=== PATIENT | female | born 1965 | race Caucasian/White ===

== ENCOUNTER 2018-07-23 13:45 | Day surgery (SDC) | payer OTHER ==
[2018-07-17 10:29] VITALS: BMI 24.1
--- NOTE | 2018-07-18 18:33 | P.GSHP ---
History of Present Illness H&P Date: 07/15/18 Chief Complaint: Right hydronephrosis The patient is a 52-year-old female who was diagnosed with stage IV chronic kidney disease earlier this summer. Her creatinine was 2.8 in 04/2018. 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 Renal ultrasound on 05/17/2018 showed moderate right hydronephrosis and a somewhat atrophic left kidney. Patient was seen by me on 07/11 and I showed her the renal ultrasound. The source of the hydronephrosis is unclear but could be related to a chronic ureteropelvic junction obstruction. If the kidney is obstructed then relief of the obstruction may improve or stabilize her renal function. Cystoscopy with right retrograde is planned with the intent of placement of a double-J catheter if an obstruction is confirmed. The patient has no history of urolithiasis or gross hematuria. She usually voids every 4 hours during the day and has no nocturia. There is no history of recurrent urinary tract infections. - Constitutional Constitutional: Denies chronic pain, Denies fever, Denies weight loss - Cardiovascular Cardiovascular: Reports shortness of breath (Related to anxiety attack), Denies chest pain, Denies edema, Denies palpitations - Respiratory Respiratory: Denies cough, Denies wheezing - Gastrointestinal Gastrointestinal: Denies abdominal pain - Genitourinary (Female) Genitourinary: Reports as per HPI Past Medical History Past Medical History: Renal Disease (Stage 4) Additional Past Medical History / Comment(s): Anxiety Past Surgical History: Section (x 2; D&C x2) Past Psychological History: Anxiety Smoking Status: Never smoker - Past Family History Father Additional Family Medical History / Comment(s): Parkinson's Disease-Father Sister(s) Family Medical History: Cancer Additional Family Medical History / Comment(s): LUNG Medications and Allergies Home Medications Medication Instructions Recorded Confirmed Type Acetaminophen Tab [Tylenol Tab] 1,000 mg PO Q6HR PRN 07/17/18 07/17/18 History clonazePAM [KlonoPIN] 0.5 mg PO HS 07/17/18 07/17/18 History Allergies Allergy/AdvReac Type Severity Reaction Status Date / Time Sulfa (Sulfonamide AdvReac Abdominal Verified 07/17/18 10:24 Antibiotics) Pain Surgical - Exam - General well developed, well nourished, no distress - ENT no hearing loss - Neck no masses, no lymphadectomy - Respiratory normal respiratory effort, clear to auscultation - Cardiovascular Rhythm: regular Abnormal Heart Sounds: no systolic murmur, no diastolic murmur - Abdomen Abdomen: soft, non tender, no organomegaly Assessment and Plan Assessment: The patient will undergo cystoscopy with right retrograde pyeloureterogram under general anesthesia. If an obstruction is present an attempt will be made to place a double-J catheter for temporary palliation. The patient is aware of the operative risks which include anesthesia, bleeding and infection. (1) Hydronephrosis, right Status: Acute Code(s): N13.30 - UNSPECIFIED HYDRONEPHROSIS SNOMED Code(s): 76184491
[~2018-07-23 13:45] MED LIST: DEXAMETHASONE SOD PHOSPHATE 10 MG/ML 1 ML VIAL IV ONE; HYDROmorphone 0.5 MG/0.5 ML SYRINGE IVP PRN; LACTATED RINGERS 1,000 ML IV SCH; LIDOCAINE 1% 20 ML VIAL (10MG/ML) FOR IV START INTRADERMA PRN; ONDANSETRON 4 MG/2 ML VIAL IVP ONE; SCOPOLAMINE 1.5MG/72HR PATCH TRANSDERM ONE; ceFAZolin 1,000 MG in DEXTROSE/WATER 1 50ML.BAG IV ONE
[2018-07-23] MEDS ORDERED: MIDAZOLAM 2 MG/2 ML VIAL IVP ONE ×2 (14:09→15:50)
[2018-07-23] MEDS ORDERED: LIDOCAINE 1% INJ 10MG/ML (20 ML MDV) ONE (16:11)
[2018-07-23] MEDS ORDERED: MIDAZOLAM 2 MG/2 ML VIAL ONE (16:11)
[2018-07-23] MEDS ORDERED: SUCCINYLCHOLINE CHLORIDE 100 MG/5 ML SYR IV ONE (16:11)
[2018-07-23] MEDS ORDERED: PROPOFOL 10 MG/ML 20 ML VIAL IV ONE (16:11)
[2018-07-23] MEDS ORDERED: fentaNYL (PF) 50 MCG/ML 2 ML AMP ONE (16:11)
[2018-07-23] MEDS ORDERED: ePHEDrine SULFATE/0.9% NACL/PF 50 MG/5 ML SYRINGE IV ONE (16:11)
[2018-07-23] MEDS ORDERED: IOHEXOL 350 MG/ML 50ML BOTTLE IRRIGATION ONE (16:37)
[2018-07-23] MEDS: LACTATED RINGERS 1,000 ML IV ONE ×2 (16:38→17:55)
[2018-07-23] MEDS ORDERED: LACTATED RINGERS 1,000 ML IV ONE (16:38)
[2018-07-23 18:03] VITALS: RESP 16; TEMP 97.6
--- NOTE | 2018-07-23 18:06 | P.OP ---
Date of Procedure: 07/23/18 Preoperative Diagnosis: Right hydronephrosis Postoperative Diagnosis: Right hydronephrosis secondary to mid right ureteral calculus Procedure(s) Performed: Cystoscopy with right retrograde ureterogram, right ureteroscopy with lithotripsy and placement of right double-J catheter Anesthesia: ALVERTO Surgeon: Ceasar Avery Estimated Blood Loss (ml): 0 Pathology: none sent Condition: stable Disposition: PACU Indications for Procedure: The patient is a 52-year-old female who was recently discovered to have an elevated creatinine. Renal ultrasound shows right hydronephrosis. Patient has no history of flank pain or hematuria. Cystoscopy with right retrograde is planned for further evaluation. Description of Procedure: The patient was taken to the operating suite suite where adequate general anesthesia via orotracheal intubation was instituted. She was placed in the dorsal lithotomy position with her legs suspended from padded Stanton stirrups. Pneumatic compression stockings were applied to the lower legs. The genitalia was prepped with Betadine solution and draped in a sterile fashion. The external genitalia and urethral meatus were unremarkable. The 17-Estonian cystoscope sheath with 30 lens was passed through the urethra and into the bladder. The bladder showed evidence of cystitis cystica. There was no evidence of tumor foreign body or diverticulum. Both ureteral orifice ease were of normal location and configuration and effluxed clear urine. A right retrograde ureterogram was performed using an 8-Estonian cone-tipped catheter. The distal ureter was unremarkable. In the mid ureter was a filling defect which appeared to be consistent with a ureteral calculus. A 0.035 Glidewire was advanced through the right ureteral orifice and eventually beyond the calculus and into the region of the renal pelvis. The cystoscope was withdrawn leaving the Glidewire in place. The flexible ureteroscope was advanced over the Glidewire and into the distal ureter. The distal ureter and mid ureter was unremarkable up to the region of the filling defect which was confirmed to be a calculus. There appeared to be relatively severe edema adjacent to the calculus. The ureteroscope was withdrawn leaving the Glidewire in place. A 13- Estonian ureteral reentry sheath with 11-Estonian obturator was advanced over the Glidewire and positioned so that the proximal end of the reentry sheath was approximately 3 cm distal to the calculus. Ureteroscopy was performed using the flexible ureteroscope through the access sheath. It was difficult to achieve good visualization of the calculus but at times the calculus was well visualized and was part shortly broken down using the holmium laser at a setting of 600 mJ and 6 cps and the 200 laser fiber. Unfortunately due to the edema around the ureter became increasingly difficult to safely the laser on the stone. A 0.038 straight glide wire was advanced adjacent to the calculus in an attempt to straighten the ureter but even after doing this it was suboptimal to safely visualize the calculus to continue ureteroscopy. The ureteroscope and reentry sheath were withdrawn leaving the 0.[address] The 19-Estonian cystoscope sheath with 30 lens was backloaded over the Glidewire and reintroduced in the bladder. A 6-Estonian by 22 cm double-J catheter was advanced over the Glidewire and positioned fluoroscopically so that the proximal end coiled in the region of the renal pelvis and the distal end coiled in the bladder. The bladder was drained and the cystoscope was withdrawn. The patient tolerated the procedure well and left the operating suite in satisfactory condition. There was no blood loss. Repeat ureteroscopy will be set up in 2-3 weeks at which time the edema surrounding the ureteral calculus will most likely have subsided.
[2018-07-23 18:55] VITALS: BP 156/80; PULSE 116
--- NOTE | 2018-07-24 10:21 | FL ---
Fluoroscopy HISTORY: Ureteral calculi 28 seconds fluoroscopy time supplied to the referring clinician. 4 intraoperative C-arm images docum ent the procedure. See dictated report from urology.
== END 2018-07-23 19:13 | disposition home or self-care (01) ==
LOC: OR 13:45
PROVIDERS: ATTEND Urology
DX: N13.2 Hydronephrosis with renal and ureteral calculous obstruction (principal); N18.4 Chronic kidney disease, stage 4 (severe); F41.9 Anxiety disorder, unspecified; K21.9 Gastro-esophageal reflux disease without esophagitis; Z79.899 Other long term (current) drug therapy; Z88.2 Allergy status to sulfonamides
CPT/HCPCS: 74420; 52356; C1758; C1769 ×2; C2625; J2250; J1100; J2405; J2001; J3010; J0690; J0330; J2704; Q9967

== ENCOUNTER 2018-08-10 11:04 | Day surgery (SDC) | payer OTHER ==
[2018-08-08 11:48] VITALS: BMI 23.8
--- NOTE | 2018-08-09 13:08 | P.GSHP ---
History of Present Illness H&P Date: 08/09/18 Chief Complaint: Right ureteral calculus The patient underwent right retrograde on 07/23/2018 for evaluation of right hydronephrosis and was found to have and obstructive right ureteral calculus. There was too much edema adjacent to the calculus to safely perform holmium laser lithotripsy and so a JJ catheter was placed to allow the edema to resolve. The patient is admitted for repeat ureteroscopy with lithotripsy. The remainder of her history and physical is unchanged from my history and physical dated 07/15/2018. Past Medical History Past Medical History: Renal Disease Additional Past Medical History / Comment(s): STAGE 4 LEFT KIDNEY DISEASE, KIDNEY STONES History of Any Multi-Drug Resistant Organisms: None Reported Past Surgical History: Section Additional Past Surgical History / Comment(s): C-SEC X 2, LITHOTRIPSY AND PLACEMENT OF RIGHT DOUBLE J CATHETER Past Anesthesia/Blood Transfusion Reactions: No Reported Reaction Smoking Status: Never smoker - Past Family History Father Additional Family Medical History / Comment(s): Parkinson's Disease-Father Sister(s) Family Medical History: Cancer Additional Family Medical History / Comment(s): LUNG Medications and Allergies Home Medications Medication Instructions Recorded Confirmed Type Acetaminophen Tab [Tylenol Tab] 1,000 mg PO Q6HR PRN 07/17/18 08/08/18 History clonazePAM [KlonoPIN] 0.5 mg PO HS 07/17/18 08/08/18 History PARoxetine [Paxil] 20 mg PO DAILY 08/08/18 08/08/18 History Allergies Allergy/AdvReac Type Severity Reaction Status Date / Time Sulfa (Sulfonamide AdvReac Abdominal Verified 08/08/18 11:26 Antibiotics) Pain Assessment and Plan (1) Hydronephrosis with ureteral calculus Narrative/Plan: The patient will undergo right ureteroscopy with lithotripsy under general anesthesia. She is aware of the operative risks which include ureteral damage and persistent hydronephrosis. Status: Acute Code(s): N13.2 - HYDRONEPHROSIS WITH RENAL AND URETERAL CALCULOUS OBSTRUCTION SNOMED Code(s): 021395700
[~2018-08-10 11:04] MED LIST changes: -HYDROmorphone 0.5 MG/0.5 ML SYRINGE IVP PRN; +HYDROmorphone 1 MG/ML 1 ML SYRINGE IVP PRN; -LIDOCAINE 1% 20 ML VIAL (10MG/ML) FOR IV START INTRADERMA PRN; +MIDAZOLAM 2 MG/2 ML VIAL IV PRN; -ceFAZolin 1,000 MG in DEXTROSE/WATER 1 50ML.BAG IV ONE; +ceFAZolin 1,000 MG in EMPTY BAG 1 BAG IVPB ONE
[2018-08-10 11:36] VITALS: RESP 16
[2018-08-10] MEDS ORDERED: LIDOCAINE 1% 20 ML VIAL (10MG/ML) FOR IV START INTRADERMA ONE (11:56)
[2018-08-10] MEDS ORDERED: SUCCINYLCHOLINE CHLORIDE 100 MG/5 ML SYR IV ONE (12:54)
[2018-08-10] MEDS ORDERED: ePHEDrine SULFATE/0.9% NACL/PF 50 MG/5 ML SYRINGE IV ONE (12:54)
[2018-08-10] MEDS ORDERED: MIDAZOLAM 2 MG/2 ML VIAL ONE (12:54)
[2018-08-10] MEDS ORDERED: LIDOCAINE 1% INJ 10MG/ML (20 ML MDV) ONE (12:54)
[2018-08-10] MEDS ORDERED: fentaNYL (PF) 50 MCG/ML 2 ML AMP ONE (12:54)
[2018-08-10] MEDS ORDERED: PROPOFOL 10 MG/ML 20 ML VIAL IV ONE (12:54)
[2018-08-10] MEDS ORDERED: LACTATED RINGERS 1,000 ML IV ONE (14:19)
[2018-08-10 14:33] VITALS: TEMP 96.8
--- NOTE | 2018-08-10 14:39 | FL ---
EXAMINATION TYPE: FL guidance operating room DATE OF EXAM: 08/10/2018 CLINICAL HISTORY: Ureteral stent placement and stone removal. Fluoroscopy recommendation. TECHNIQUE: Fluoroscopy. COMPARISON: None. FINDINGS/IMPRESSION: Fluoroscopic guidance was provided during procedure performed by Dr. Avery. A total of 5 seconds of fluoroscopic time was utilized during the procedure and 1 spot images was acqui red during ureteral stone removal and stent placement.
--- NOTE | 2018-08-10 14:39 | P.OP ---
Date of Procedure: 08/10/18 Preoperative Diagnosis: Right hydronephrosis secondary to right ureteral calculus Postoperative Diagnosis: Right hydronephrosis secondary to right ureteral calculus Procedure(s) Performed: Cystoscopy with right ureteroscopy, lithotripsy and placement of right double-J catheter Anesthesia: ALVERTO Surgeon: Ceasar Avery Estimated Blood Loss (ml): 0 Pathology: other (right ureteral calculus fragments) Condition: stable Disposition: PACU Indications for Procedure: The patient is a 52-year-old female who was recently noted to have an elevated creatinine. Renal ultrasound identified right hydronephrosis. Cystoscopy with right retrograde a proximally 2 weeks ago showed evidence of a mid right ureteral calculus which was the cause of the hydronephrosis. Ureteroscopy with lithotripsy was attempted but could not be completed due to edema surrounding the calculus. A double-J catheter was left. Repeat ureteroscopy with lithotripsy is planned. Description of Procedure: The patient was taken the operating suite where adequate general anesthesia via orotracheal intubation was instituted. The patient was placed in the dorsal lithotomy position with her legs suspended from padded Stanton stirrups. Sequential pneumatic compression stockings were applied to the lower legs. The perineum was prepped with Betadine solution and draped in a sterile fashion. The external genitalia and urethral meatus were normal. The 22-Fijian cystoscope sheath with obturator was passed through the urethra and into the bladder. The bladder was examined. Protruding from the right ureteral orifice was the distal coiled end of a double-J catheter. The double-J catheter was grasped with biopsy forceps and pulled to just outside the urethral meatus. A 0.035 straight Glidewire was passed through the double-J catheter up to the region of the right renal pelvis and the double-J catheter was removed. Right ureteroscopy was then performed using the semirigid rigid ureteroscope. The distal and mid ureter was unremarkable. A calculus was identified in the region between the mid and proximal ureter. A moderate amount of edema remained. The calculus was broken down into multiple smaller fragments using the 370 fiber and the holmium laser at a setting of 600 mJ and 6 cps. The larger calculus fragments were then removed from the ureter using a 1.9-Fijian nitinol stone basket. The semirigid ureteroscope was removed. The flexible ureteroscope was then advanced over the Glidewire and into the mid ureter. The flexible ureteroscope was then advanced up into the proximal ureter and renal pelvis. The calyces of the kidney were examined. A small calculus fragment was identified in a lower pole calyx and trapped using the stone basket. The ureter was examined as the ureteroscope was withdrawn and no other calculi remained. There was still moderate edema present adjacent to the site of the calculus and in view of this it was elected to replace the double-J catheter. The cystoscope was reintroduced into the bladder. The Glidewire was advanced up to the region of the renal pelvis and a 6-Fijian by 22 cm double-J catheter was advanced over the Glidewire and positioned so that the proximal end coiled in the region of the renal pelvis and the distal and coiled in the bladder. The bladder was drained and the cystoscope was withdrawn. The patient tolerated procedure well and left the operative room awake and in satisfactory condition. There was no blood loss. The double-J catheter will be removed in approximately 10 days. A follow-up renal ultrasound will be obtained in approximately 6 weeks.
[2018-08-10 15:21] VITALS: PULSE 99
[2018-08-10 15:59] VITALS: BP 132/79
== END 2018-08-10 16:02 | disposition home or self-care (01) ==
LOC: OR 11:04
PROVIDERS: ATTEND Urology
DX: N13.2 Hydronephrosis with renal and ureteral calculous obstruction (principal); N28.9 Disorder of kidney and ureter, unspecified; Z79.899 Other long term (current) drug therapy; Z88.2 Allergy status to sulfonamides
CPT/HCPCS: 82365; 52356; C1769; C2625; J2250; J1100; J2405; J2001; J3010; J0330; J2704

== ENCOUNTER 2018-08-22 08:39 | Inpatient (IN) | payer OTHER ==
[2018-08-22] MEDS ORDERED: ONDANSETRON 4 MG/2 ML VIAL IVP STA (09:04)
[2018-08-22] MEDS ORDERED: PANTOPRAZOLE 40 MG/10 ML VIAL IVP STA (09:04)
[2018-08-22] MEDS ORDERED: SODIUM CHLORIDE 0.9% 1,000 ML IV STA (09:04)
[2018-08-22] MEDS ORDERED: KETOROLAC 30 MG/ML 1 ML VIAL IVP STA (09:04)
[2018-08-22] MEDS ORDERED: ORPHENADRINE 30 MG/ML 2 ML VIAL IVP STA (09:05)
--- NOTE | 2018-08-22 09:08 | ED ---
Abdominal Pain HPI - General Chief Complaint: Abdominal Pain Stated Complaint: Heartburn, muscle pain Time Seen by Provider: 08/22/18 08:57 Source: patient, RN notes reviewed, old records reviewed Mode of arrival: ambulatory - History of Present Illness Initial Comments: Patient is a 52-year-old female presents for her symptoms today with chief complaint of heartburn, multiple vomiting times one day. Patient reports that she also is having spasms in her back and relates that she's also quite anxious. Patient states that she had ureteral stent removed from the right ureter on Monday by Dr. Avery. Patient reports that they remove the stone due to worsening kidney function and obstruction. Patient states that she tolerated the procedure well that time. Patient reports that she has no burning with urination, she denies any change in urination of this time. - Related Data Home Medications Medication Instructions Recorded Confirmed clonazePAM [KlonoPIN] 0.5 mg PO HS 07/17/18 08/22/18 PARoxetine [Paxil] 20 mg PO DAILY 08/08/18 08/22/18 Allergies Allergy/AdvReac Type Severity Reaction Status Date / Time Sulfa (Sulfonamide AdvReac Abdominal Verified 08/22/18 09:50 Antibiotics) Pain Review of Systems ROS Statement: Those systems with pertinent positive or pertinent negative responses have been documented in the HPI. ROS Other: All systems not noted in ROS Statement are negative. Past Medical History Past Medical History: Renal Disease Additional Past Medical History / Comment(s): STAGE 4 LEFT KIDNEY DISEASE, KIDNEY STONES History of Any Multi-Drug Resistant Organisms: None Reported Past Surgical History: Section Additional Past Surgical History / Comment(s): C-SEC X 2, LITHOTRIPSY AND PLACEMENT OF RIGHT DOUBLE J CATHETER, 2 d & c Past Anesthesia/Blood Transfusion Reactions: No Reported Reaction Past Psychological History: Anxiety, Depression Smoking Status: Never smoker Past Alcohol Use History: None Reported Past Drug Use History: None Reported - Past Family History Father Additional Family Medical History / Comment(s): Parkinson's Disease-Father Sister(s) Family Medical History: Cancer Additional Family Medical History / Comment(s): LUNG General Exam - General Exam Comments Initial Comments: 52-year-old female. Very anxious. General appearance: alert, in no apparent distress, anxious Head exam: Present: atraumatic, normocephalic, normal inspection Eye exam: Present: normal appearance, PERRL, EOMI. Absent: scleral icterus, conjunctival injection, periorbital swelling ENT exam: Present: normal exam, mucous membranes moist Neck exam: Present: normal inspection. Absent: tenderness, meningismus, lymphadenopathy Respiratory exam: Present: normal lung sounds bilaterally. Absent: respiratory distress, wheezes, rales, rhonchi, stridor Cardiovascular Exam: Present: regular rate, normal rhythm, normal heart sounds. Absent: systolic murmur, diastolic murmur, rubs, gallop, clicks GI/Abdominal exam: Present: soft, tenderness (epigastric), normal bowel sounds. Absent: distended, guarding, rebound, rigid Extremities exam: Present: normal inspection, full ROM, normal capillary refill. Absent: tenderness, pedal edema, joint swelling, calf tenderness Back exam: Present: normal inspection Neurological exam: Present: alert, oriented X3, CN II-XII intact Psychiatric exam: Present: normal affect, normal mood Course Vital Signs 08/22/18 08/22/18 08/22/18 08:50 10:49 11:45 Temperature 97.8 F Pulse Rate 77 103 H 96 Respiratory Rate Blood Pressure 133/85 147/82 149/84 O2 Sat by Pulse 95 100 98 Oximetry Medical Decision Making - Medical Decision Making Patient is a 52-year-old female with recent viral Gaudencio removal on Monday. She presents today with epigastric abdominal pain, heartburn. She also complains of some back pain. IV fluids and laboratory obtained. Patient's lab work show mildly elevated lipase at 590. Patient does have decreased kidney function with GFR 32. She reports it previously was 20 prior to the ureteral strep placement. At this time Patient did undergo computed tomography scan to further evaluate the pancreas and the kidneys. There is no evidence of obstructing ureteral stone. There is evidence of residual right-sided hydronephrosis. Patient also had evidence of a dilated gallbladder. Her urinalysis is positive for infection with over 40 white blood cells. Urine culture obtained. At this time since case discussed with Dr. Vallejo who discussed the case with Dr. Petty. Patient will be admitted at this time and pending future ultrasound of her gallbladder. We will consult surgery for evaluation. Patient will be started on Rocephin for the urinary tract infection. - Lab Data Result diagrams: 08/22/18 09:08/22/18 09:26 Lab Results 08/22/18 08/22/18 08/22/18 Range/Units 09: 09:26 10:20 WBC 9.3 (3.8-10.6) k/uL RBC 4.09 (3.80-5.40) m/uL Hgb 13.0 (11.4-16.0) gm/dL Hct 39.0 (34.0-46.0) % MCV 95.2 (80.0-100.0) fL MCH 31.8 (25.0-35.0) pg MCHC 33.4 (31.0-37.0) g/dL RDW 13.5 (11.5-15.5) % Plt Count 277 (150-450) k/uL Neutrophils % 87 % Lymphocytes % 10 % Monocytes % 2 % Eosinophils % 1 % Basophils % 0 % Neutrophils # 8.1 H (1.3-7.7) k/uL Lymphocytes # 0.9 L (1.0-4.8) k/uL Monocytes # 0.2 (0-1.0) k/uL Eosinophils # 0.1 (0-0.7) k/uL Basophils # 0.0 (0-0.2) k/uL Sodium 143 (137-145) mmol/L Potassium 5.1 (3.5-5.1) mmol/L Chloride 110 H (98-107) mmol/L Carbon Dioxide 23 (22-30) mmol/L Anion Gap 10 mmol/L BUN 24 H (7-17) mg/dL Creatinine 1.99 H (0.52-1.04) mg/dL Est GFR (CKD-EPI)AfAm 32 (>60 ml/min/1.73 sqM) Est GFR (CKD-EPI)NonAf 28 (>60 ml/min/1.73 sqM) Glucose 120 H (74-99) mg/dL Calcium 11.6 H (8.4-10.2) mg/dL Total Bilirubin 0.5 (0.2-1.3) mg/dL AST 26 (14-36) U/L ALT 22 (9-52) U/L Alkaline Phosphatase 104 (38-126) U/L Total Protein 7.7 (6.3-8.2) g/dL Albumin 4.1 (3.5-5.0) g/dL Amylase 126 H (30-110) U/L Lipase 578 H (23-300) U/L Urine Color Yellow Urine Appearance Clear (Clear) Urine pH 6.5 (5.0-8.0) Ur Specific [place] 1.013 (1.001-1.035) Urine Protein 2+ H (Negative) Urine Glucose (UA) Negative (Negative) Urine Ketones Negative (Negative) Urine Blood Negative (Negative) Urine Nitrite Negative (Negative) Urine Bilirubin Negative (Negative) Urine Urobilinogen <2.0 (<2.0) mg/dL Ur Leukocyte Esterase Large H (Negative) Urine RBC 6 H (0-5) /hpf Urine WBC 46 H (0-5) /hpf Ur Squamous Epith Cells <1 (0-4) /hpf Urine Mucus Rare H (None) /hpf 08/22/18 09:46 EKG shows normal sinus rhythm incomplete right branch block. Abnormal EKG. Ventricular rate of 71 bpm. Intervals 154 ms. QRS duration 106. QT QTc is 400/434 ms. - Radiology Data Radiology results: report reviewed CT abdomen and pelvis without contrast : Mild to moderate right-sided hydronephrosis without obstructing calculus clearly seen. Bilateral nephrolithiasis is noted. There is asymptomatic left renal atrophy noted. No bowel obstruction. shows Dilated gallbladder with the Center margins. No CT evidence of intraluminal gallstones or CT evidence for acute cholecystitis noted. Chest x-ray is negative for any acute cardiopulmonary process. KUB shows overall nonspecific but strongly favor and observed bowel gas pattern. No left-sided tenderness millimeter calculus identified. Possible splenomegaly. Correlate clinically. Disposition Clinical Impression: Dilated gallbladder, UTI (urinary tract infection) Disposition: ADMITTED IP TO THIS HOSP Condition: Stable Is patient prescribed a controlled substance at d/c from ED?: No Referrals: None,Stated [REFERRING] - 1-2 days Time of Disposition: 12:14
--- NOTE | 2018-08-22 09:56 | XR ---
EXAMINATION TYPE: XR chest 2V DATE OF EXAM: 08/22/2018 COMPARISON: NONE HISTORY: Chest discomfort and upper abdominal pain TECHNIQUE: Frontal and lateral views of the chest are obtained. FINDINGS: Satisfactory inspiration is noted. There is no focal air space opacity, pleural effusion, o r pneumothorax seen. The cardiac silhouette size is within normal limits. The osseous structures a re intact. IMPRESSION: No acute cardiopulmonary process.
--- NOTE | 2018-08-22 09:58 | XR ---
EXAMINATION TYPE: XR KUB DATE OF EXAM: 08/22/2018 9:52 AM CLINICAL HISTORY: Upper abdominal pain with reflux. Chest discomfort. TECHNIQUE: Two frontal KUB images of the abdomen are obtained. COMPARISON: None. FINDINGS: There is some paucity of small bowel gas. Gas is noted in nondistended stomach. Gas and fec al material is seen in non-distended colon. There is 10 mm calculus lower pole left kidney L3 level. There is dextroconvex scoliosis centered in the upper lumbar spine. Spleen appears prominent but proj ecting below left 12th rib. IMPRESSION: Overall nonspecific but strongly favor nonobstructive bowel gas pattern. Known left-sided 10 mm calcu matt identified. Possible splenomegaly, correlate clinically.
[2018-08-22 10:00] LABS: Basophils % (A) 0 %; Eosinophils # (A) 0.1 k/uL (0-0.7); Eosinophils % (A) 1 %; Lymphocytes # (A) 0.9 k/uL (1.0-4.8); Lymphocytes % (A) 10 %; MCH 31.8 pg (25.0-35.0); MCHC 33.4 g/dL (31.0-37.0); MCV 95.2 fL (80.0-100.0); Mean Platelet Volume 6.9; Monocytes # (A) 0.2 k/uL (0-1.0); Monocytes % (A) 2 %; Neutrophils # (A) 8.1 k/uL (1.3-7.7); Neutrophils % (A) 87 %; Platelet Count 277 k/uL (150-450); RBC 4.09 m/uL (3.80-5.40); RDW 13.5 % (11.5-15.5); WBC 9.3 k/uL (3.8-10.6)
[2018-08-22 10:14] LABS: Albumin 4.1 g/dL (3.5-5.0); Calcium 11.6 mg/dL (8.4-10.2); Potassium 5.1 mmol/L (3.5-5.1); Total Bilirubin 0.5 mg/dL (0.2-1.3); Total Protein 7.7 g/dL (6.3-8.2)
[2018-08-22 10:34] LABS: Appearance,Urine Clear (Clear); Bilirubin,Urine Negative (Negative); Blood,Urine Negative (Negative); Color,Urine Yellow; Glucose,Urine (UA) Negative (Negative); Ketones,Urine Negative (Negative); Leukocyte Esterase,Urine Large (Negative); Mucus,Urine Rare /hpf; Nitrite,Urine Negative (Negative); PH, Urine 6.5 (5.0-8.0); Protein,Urine 2+ (Negative); RBC,Urine 6 /hpf (0-5); Specific Gravity,Urine 1.013 (1.001-1.035); Squamous Epithelial Cell,Urine <1 /hpf (0-4); Urobilinogen,Urine <2.0 mg/dL (<2.0)
[2018-08-22] MEDS: SODIUM CHLORIDE 0.9% 1,000 ML IV SCH ×2 (10:49→20:30)
--- NOTE | 2018-08-22 11:31 | CT ---
EXAMINATION TYPE: CT abdomen pelvis wo con DATE OF EXAM: 08/22/2018 HISTORY: Upper abdominal pain since early this morning. CT DLP: 354.8 mGycm. Automated Exposure Control for Dose Reduction was Utilized. TECHNIQUE: CT scan of the abdomen and pelvis is performed without oral or IV contrast. COMPARISON: NONE FINDINGS: Within the limitations of a non-contrast study, the following observations are made. LUNG BASES: No significant abnormality is appreciated. LIVER/GB: Gallbladder has distended margins and is dilated. No dependent gallstones are seen. No surr ounding inflammation, fluid, or wall thickening is noted. No CT dense intraluminal gallstones are see n. No biliary dilatation is evident. PANCREAS: No significant abnormality is seen. SPLEEN: No significant abnormality is seen. ADRENALS: No significant abnormality is seen. KIDNEYS: There is asymmetric atrophy and cortical thinning of the left kidney. There is a staghorn ty pe calculus measuring 8 mm long axis filling lower pole calyx on the left coronal image 52. There are additional 1-2 calculi measuring 2 mm or smaller scattered throughout the left kidney. No left-sided hydronephrosis is noted. There are roughly 10 calculi scattered throughout the right kidney, largest is lower pole level coron al image 50 measuring 6 mm long axis. There is mild to moderate right-sided pyelocaliectasis and diff use hydroureter with mural prominence along course of ureter. No obstructing calculus is clearly seen . A 3 mm density right pelvis appears outside ureter axial image 70 favoring phlebolith. Ureter is st able in size distal to this 2 bladder orifice. No intraluminal calculi and bladder are present. Addit ional pelvic phleboliths are noted. Bowel: Moderate size hiatal hernia is seen. No suspicious small or large bowel dilatation is identifi ed. Normal-appearing appendix is ascending from cecum GENITAL ORGANS: Anteverted uterus is seen. LYMPH NODES: No greater than 1cm abdominal or pelvic lymph nodes are appreciated. OSSEOUS STRUCTURES: Multilevel facet arthropathy in the lower lumbar spine is noted. OTHER: No significant additional abnormality is seen. IMPRESSION: 1. Mild to moderate right-sided hydronephrosis without obstructing calculus clearly seen. Bilateral n ephrolithiasis noted. Asymmetric left renal atrophy noted. 2. No bowel obstruction. 3. Dilated gallbladder with distended margins. No CT dense intraluminal gallstones or CT evidence for acute cholecystitis noted.
[2018-08-22] MEDS ORDERED: LORazepam 2 MG/ML INJ IV STA (12:06)
[2018-08-22] MEDS ORDERED: HYDROmorphone 0.5 MG/0.5 ML SYRINGE IVP PRN (12:14)
[2018-08-22] MEDS ORDERED: NALOXONE 0.4 MG/ML 1 ML VIAL IV PRN (12:14)
--- NOTE | 2018-08-22 13:12 | US ---
EXAMINATION TYPE: US gallbladder DATE OF EXAM: 08/22/2018 COMPARISON: CT abdomen and pelvis earlier today CLINICAL HISTORY: Pain. History of kidney stones, epigastric pain EXAM MEASUREMENTS: Liver Length: 12.1 cm Gallbladder Wall: 0.2 cm CBD: 0.4 cm Right Kidney: 10.3 x 5.4 x 4.7 cm Pancreas: Obscured by bowel gas Liver: wnl Gallbladder: Multiple stones visualized within the neck of the gallbladder. Gallbladder appears hydr opic Evidence for sonographic Mcintosh's sign: No CBD: wnl as visualized, distal portion obscured by bowel gas Right Kidney: Small amount of hydronephrosis visualized. Multiple echogenic foci visualized, largest measuring 0.7 cm lower pole Visualized pancreas is unremarkable. Visualized liver is homogeneous. Gallbladder shows shadowing mob ile gallstones. No pericholecystic fluid or abnormal gallbladder wall thickening. Sonographic Mcintosh sign negative. IMPRESSION: Gallstones and prominent gallbladder without additional secondary ultrasound or CT eviden ce for acute cholecystitis. If suspicion persists further investigation with HIDA scan may be warrant ed.
[2018-08-22] MEDS: MORPHINE SULFATE 4 MG/ML SYRINGE IV PRN (14:31)
[2018-08-22 16:35] LABS: Amylase 99 U/L (30-110); Lipase 434 U/L (23-300)
--- NOTE | 2018-08-22 16:38 | P.GSCN ---
History of Present Illness Consult date: 08/22/18 Reason for Consult: Abdominal pain History of present illness: 52-year-old female who presented to the emergency room with a chief complaint of developing episodes of vomiting with heartburn sensation. Patient stated that he continued throughout the day and started having spasms in her back. Patient stated that in August she had a urethral stent removed from her right ureter by Dr. berman . Patient stated the stent was removed due to worsening of the kidney function and the obstruction. Patient stated that she had tolerated the procedure until the day of the event that she came into the emergency room and was experiencing the above-mentioned symptoms. Patient denied any burning urination frequency urgency patient states she does have a history of stage IV kidney disease. In the emergency room the patient did have a computed tomography scan of the abdomen pelvis without contrast. Reviewing the report noted in the left kidney cortical thinning with calculus in the left. No left- sided hydronephrosis noted the gallbladder was distended and dilated no dependent gallstones seen no biliary dilatation noted patient did have an ultrasound of the gallbladder done it did show gallstones prominent gallbladder without additional secondary ultrasound or CT for acute cholecystitis noted Review of Systems Essentially unremarkable except as mentioned in the present on Past Medical History Past Medical History: Renal Disease Additional Past Medical History / Comment(s): STAGE 4 LEFT KIDNEY DISEASE, KIDNEY STONES. nailpatella syndrome History of Any Multi-Drug Resistant Organisms: None Reported Past Surgical History: Section Additional Past Surgical History / Comment(s): C-SEC X 2, LITHOTRIPSY AND PLACEMENT OF RIGHT DOUBLE J CATHETER, 2 d & c Past Anesthesia/Blood Transfusion Reactions: No Reported Reaction Past Psychological History: Anxiety, Depression Smoking Status: Never smoker Past Alcohol Use History: None Reported Past Drug Use History: None Reported - Past Family History Father Additional Family Medical History / Comment(s): Parkinson's Disease-Father Sister(s) Family Medical History: Cancer Additional Family Medical History / Comment(s): LUNG Medications and Allergies Home Medications Medication Instructions Recorded Confirmed Type clonazePAM [KlonoPIN] 0.5 mg PO HS 07/17/18 08/22/18 History PARoxetine [Paxil] 20 mg PO DAILY 08/08/18 08/22/18 History Allergies Allergy/AdvReac Type Severity Reaction Status Date / Time Sulfa (Sulfonamide AdvReac Abdominal Verified 08/22/18 09:50 Antibiotics) Pain Surgical - Exam Vital Signs Temp Pulse Resp BP Pulse Ox 97.8 F 77 18 133/85 95 08/22/18 08:50 08/22/18 08:50 08/22/18 08:50 08/22/18 08:50 08/22/18 08:50 GENERAL APPEARANCE: 52-year-old female currently resting in bed alert, oriented , in no acute distress. VITAL SIGNS: Reviewed HEENT: Head is normocephalic and atraumatic. Pupils are equal and reactive. The nares are patent. Oropharynx is clear without lesions. NECK: Supple without lymphadenopathy. Traches midline. HEART: S1, S2. Regular rate and rhythm. Denies chest pain no murmur LUNGS: No crackles or wheezes are heard. Adequate air movement bilaterally ABDOMEN: Soft, mild tenderness to the epigastric area no rebound nondistended bowel sounds noted. No peritoneal signs. No palpable organomegaly or masses. No reports of nausea vomiting no frequent denying any burning on urination frequency urgency EXTREMITIES: Normal skin color and turgor. No cyanosis, rash, ulceration, clubbing or edema. Radial pedal pulses are 2/4 bilaterally. NEUROLOGICAL: No focal deficits. Strength and sensation are grossly intact. Results - Labs 08/22/18 09:26 08/22/18 09:26 Abnormal Lab Results - Last 24 Hours (Table) 08/22/18 08/22/18 08/22/18 Range/Units 09:26 09:26 10:20 Neutrophils # 8.1 H (1.3-7.7) k/uL Lymphocytes # 0.9 L (1.0-4.8) k/uL Chloride 110 H (98-107) mmol/L BUN 24 H (7-17) mg/dL Creatinine 1.99 H (0.52-1.04) mg/dL Glucose 120 H (74-99) mg/dL Calcium 11.6 H (8.4-10.2) mg/dL Amylase 126 H (30-110) U/L Lipase 578 H (23-300) U/L Urine Protein 2+ H (Negative) Ur Leukocyte Esterase Large H (Negative) Urine RBC 6 H (0-5) /hpf Urine WBC 46 H (0-5) /hpf Urine Mucus Rare H (None) /hpf Microbiology - Last 24 Hours (Table) 08/22/18 10:20 Urine Culture - Preliminary Urine,Voided Diabetes panel 08/22/18 Range/Units 09:26 Sodium 143 (137-145) mmol/L Potassium 5.1 (3.5-5.1) mmol/L Chloride 110 H (98-107) mmol/L Carbon Dioxide 23 (22-30) mmol/L BUN 24 H (7-17) mg/dL Creatinine 1.99 H (0.52-1.04) mg/dL Glucose 120 H (74-99) mg/dL Calcium 11.6 H (8.4-10.2) mg/dL AST 26 (14-36) U/L ALT 22 (9-52) U/L Alkaline Phosphatase 104 (38-126) U/L Total Protein 7.7 (6.3-8.2) g/dL Albumin 4.1 (3.5-5.0) g/dL Calcium panel 08/22/18 Range/Units 09:26 Calcium 11.6 H (8.4-10.2) mg/dL Albumin 4.1 (3.5-5.0) g/dL Pituitary panel 08/22/18 Range/Units 09:26 Sodium 143 (137-145) mmol/L Potassium 5.1 (3.5-5.1) mmol/L Chloride 110 H (98-107) mmol/L Carbon Dioxide 23 (22-30) mmol/L BUN 24 H (7-17) mg/dL Creatinine 1.99 H (0.52-1.04) mg/dL Glucose 120 H (74-99) mg/dL Calcium 11.6 H (8.4-10.2) mg/dL Adrenal panel 08/22/18 Range/Units 09:26 Sodium 143 (137-145) mmol/L Potassium 5.1 (3.5-5.1) mmol/L Chloride 110 H (98-107) mmol/L Carbon Dioxide 23 (22-30) mmol/L BUN 24 H (7-17) mg/dL Creatinine 1.99 H (0.52-1.04) mg/dL Glucose 120 H (74-99) mg/dL Calcium 11.6 H (8.4-10.2) mg/dL Total Bilirubin 0.5 (0.2-1.3) mg/dL AST 26 (14-36) U/L ALT 22 (9-52) U/L Alkaline Phosphatase 104 (38-126) U/L Total Protein 7.7 (6.3-8.2) g/dL Albumin 4.1 (3.5-5.0) g/dL Assessment and Plan Assessment: Impression Present on admission bilateral lower abdominal pain suspect due to a UTI KUB no left-sided tenderness no acute findings CAT scan of the abdomen pelvis show mild to moderate right-sided hydronephrosis without obstructing calculus no bowel obstruction dilated gallbladder no CT evidence of gallstones or evidence of acute cholecystitis Stage IV left kidney disease Placement of a right stent removed recently Anxiety depressive disorder Plan IV fluid for hydration Clear liquid diet Will monitor clinical course closely addressing clinical issues as they arise Pain control Home meds as appropriate DVT and GI prophylaxis No evidence of an acute surgical abdomen Surgical consultation dictated for Dr. davis The above impression and plan of care have been discussed and directed by signing physician. Parul Katz nurse practitioner acting as scribe for signing physician.
[2018-08-22] MEDS: clonazePAM 0.5 MG TAB PO SCH (20:30)
--- NOTE | 2018-08-23 01:05 | HP ---
HISTORY AND PHYSICAL CHIEF COMPLAINT: This is a 52-year-old white female with episode of heartburn sensation and found to have acute cholecystitis and elevated amylase and lipase. She was admitted to the hospital. She recently had multiple kidney procedures by Dr. Avery including a stent removal 3 to 4 days ago. 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 CT scan was reviewed. Also an ultrasound showed gallbladder with gallstones from a gallbladder. REVIEW OF SYSTEMS: Fourteen point review of systems negative except for mentioned in HPI. PAST MEDICAL HISTORY: Renal disease, stage 4 kidney disease, kidney nail-patella syndrome. PAST SURGICAL HISTORY: x2, lithotripsy, placement of right double-J catheter, D and C, history of anxiety and depression. SOCIAL HISTORY: No smoking. No alcohol. No illicit drugs. PAST FAMILY HISTORY: Father with Parkinson's disease. Sister with lung cancer. HOME MEDICINES: Klonopin and Paxil. ALLERGIES: SULFA. Temp 97.8, pulse 77, respiratory 18 to 20, blood pressure 130s over 80s, O2 95%. CARDIOVASCULAR: S1, S2. LUNGS: Clear to auscultation. HEMATOLOGIC: Negative Warren's. GI: Tender to palpation right upper quadrant epigastric. No rebound. No guarding. SKIN: Warm, dry, intact. HEART: S1, S2. LUNGS: Clear. Hemoglobin is 13, white count 9.3, BUN 24, creatinine 1.99. Amylase 126, lipase 578, glucose 120. ASSESSMENT: 1. Acute pancreatitis. 2. Abdominal pain, possible UTI, [id number] right-sided hydronephrosis, dilated gallbladder, stage IV renal disease, right stent recently removed. 3. Anxiety and depression. Clear liquid diet. Surgical consultation. Renal consultation and Infectious Disease. MMODL / IJN: [id number] /
[2018-08-23] MEDS: HYDROcodone/APAP 7.5-325MG 1 EACH TAB PO PRN ×4 (02:06→20:06)
[2018-08-23] MEDS: SODIUM CHLORIDE 0.9% 1,000 ML IV SCH ×2 (05:36→16:41)
[2018-08-23 08:02] LABS: Basophils % (A) 1 %; Eosinophils # (A) 0.3 k/uL (0-0.7); Eosinophils % (A) 5 %; HCT 35.9 % (34.0-46.0); HGB 11.5 gm/dL (11.4-16.0); Lymphocytes # (A) 1.9 k/uL (1.0-4.8); Lymphocytes % (A) 27 %; MCH 31.2 pg (25.0-35.0); MCV 97.6 fL (80.0-100.0); Mean Platelet Volume 7.3; Monocytes # (A) 0.3 k/uL (0-1.0); Monocytes % (A) 4 %; Neutrophils # (A) 4.3 k/uL (1.3-7.7); Neutrophils % (A) 63 %; Platelet Count 250 k/uL (150-450); RBC 3.68 m/uL (3.80-5.40); RDW 13.7 % (11.5-15.5); WBC 6.9 k/uL (3.8-10.6)
[2018-08-23 08:23] LABS: Calcium 9.9 mg/dL (8.4-10.2); Potassium 4.7 mmol/L (3.5-5.1); Total Protein 5.9 g/dL (6.3-8.2)
[2018-08-23] MEDS ORDERED: CEFEPIME 2 GM in SODIUM CHLORIDE 0.9% 50 ML IVPB SCH (09:00)
[2018-08-23] MEDS ORDERED: PANTOPRAZOLE 40 MG/10 ML VIAL IV SCH (09:00)
[2018-08-23] MEDS: PARoxetine 20 MG TAB PO SCH (09:05)
[2018-08-23] MEDS: MORPHINE SULFATE 4 MG/ML SYRINGE IV PRN (09:37)
[2018-08-23 09:44] LABS: Amylase 80 U/L (30-110); Lipase 368 U/L (23-300)
--- NOTE | 2018-08-23 11:12 | CONS ---
CONSULTATION DATE OF SERVICE: 08/22/2018 REASON FOR CONSULTATION: Urinary tract infection. HISTORY OF PRESENT ILLNESS: The patient is a 52-year-old female with a past medical history significant for renal stone lithotripsy who recently did have intervention to her kidney. She did have initially a right ureteral stent placement as the stone could not removed. Subsequent stone has been removed and afterwards possibly the ureteral stent was removed as well. The patient apparently was doing well; however, is coming to the [facility] ER with chief complaints of heartburn. She did have multiple episodes of vomiting and complaining of pain in the right upper quadrant and in the epigastric area. Pain described to be more of a sharp and burning in nature with intensity almost 6 to 7/10, and no radiation with associated nausea and vomiting, but denies having any diarrhea or any constipation. Some burning of urine but no frequency. With these symptoms, the patient was evaluated by the ER physician on arrival to the ER. The patient has been afebrile. Patient's white count was normal; however, UA was significantly positive with laboratory status with 46 WBC with concern for UTI. The patient did receive a dose of Rocephin, has been admitted to the hospital. In the meantime, the patient also had a CT abdominal pelvis completed which raises the possibility of a distended gallbladder, but no gallstone. Patient did have evidence of mild to moderate right-sided hydronephrosis without obstructing calculus seen. No bowel obstruction. Infectious Disease was consulted for further recommendation regarding antibiotic therapy. REVIEW OF SYSTEMS: CONSTITUTIONAL: Positive for weakness and chills. EYES: No complaint. ENT: No complaint. RESPIRATORY: No complaint. CARDIOVASCULAR: No complaint. GENITOURINARY: As per HPI. GASTROINTESTINAL: As per HPI. MUSCULOSKELETAL: No complaint. INTEGUMENTARY: No complaint. PSYCHOLOGICAL: No complaint. ENDOCRINE: No complaint. NEUROLOGIC: No complaint. PAST MEDICAL HISTORY: Significant for renal insufficiency, kidney stones. PAST SURGICAL HISTORY: x2. Lithotripsy and placement of wide double J catheter that was subsequently discontinued. PAST PSYCHOLOGICAL HISTORY: Positive for anxiety and depression. SOCIAL HISTORY: No history of smoking, drinking, or drug use. FAMILY HISTORY: Father history of Parkinson disease. Mother history of lung cancer. ALLERGIES: To SULFA ANTIBIOTIC. MEDICATION: Currently include the patient is on [place], Rocephin 1 g, did receive a dose of Rocephin, Klonopin, morphine sulfate, Narcan, Protonix, Paxil. PHYSICAL EXAMINATION: Blood pressure is 131/72 with a pulse of 77, temperature 98.1, she is 98% on room air. General description is a middle-aged female, lying in bed in no distress. HEENT: Shows no pallor or scleral icterus. Oral mucosa is dry. No pharyngeal erythema or thrush. NECK: Trachea central, no thyromegaly. LUNGS: Unlabored breathing, clear to auscultation anteriorly. No wheeze or crackle. HEART: S1, S2. Regular rate and rhythm. ABDOMEN: Soft, no tenderness, no guarding or rigidity. EXTREMITIES: No edema of the feet. SKIN EXAMINATION: No rash or mass palpable. NEUROLOGICAL: Patient is awake, alert, oriented x3. Mood and affect normal. LABS: Hemoglobin is 13, white count of 9.3, BUN of 24, creatinine is 1.99. Electrolyte has been normal. Amylase and lipase slightly elevated. DIAGNOSTIC IMPRESSION AND PLAN: Patient admitted to the hospital with acute nausea, vomiting and epigastric pain in a patient who did have evidence of elevated amylase and lipase, possible pancreatitis not entirely excluded. However, CT abdominal and pelvis did not show any significant abnormality of the pancreas, did show right-sided hydronephrosis with no renal stones and distended gallbladder. in a patient who did have complicated renal history with renal stent and renal stone that was recently removed with recent instrumentation and concern for possible resistant gram-negative pathogen. PLAN: 1. We will start the patient on cefepime 2 g and pathogen. 2. IV fluids. 3. Will follow up on clinical condition as well as cultures to further adjust medication if needed. Thank you for this consultation. Will follow this patient with you. MMODL / IJN: [id number] /
--- NOTE | 2018-08-23 11:14 | P.PN ---
Subjective Progress Note Date: 08/23/18 52-year-old female seen this morning on rounds. Patient continues to report having right lower quadrant abdominal discomfort. A scale from 1-10 rate is a 2. No Reports of nausea vomiting. Lipase down to 368. AST 64, ALT up 44 white count 6.9 afebrile Patients being followed by surgical service ultrasound gallbladder showed gallstones prominent with computed tomography scan suggestive acute cholecystitis. Patient does have a history of stage IV kidney disease Objective - Vital Signs Vital signs: Vital Signs Temp 97.7 F 08/23/18 08:15 Pulse 93 08/23/18 08:52 Resp 18 08/23/18 08:52 BP 106/70 08/23/18 08:15 Pulse Ox 97 08/23/18 08:15 Intake & Output 08/22/18 08/23/18 08/23/18 18:59 06:59 18:59 Intake Total 2600 Balance 2600 Weight 58.7 kg Intake: Intake, IV Titration 2000 Amount Sodium Chloride 0.9% 1, 2000 000 ml @ 100 mls/hr IV . Q10H CONNIE Rx#:[id number] Oral 600 Other: Voiding Method Toilet Toilet # Voids 1 2 - Exam Physical exam 52-year-old female sitting vent heating pad to the abdomen states continues to have right lower quadrant abdominal discomfort improving Lungs adequate air movement bilaterally Heart S1-S2 audible regular Abdomen soft without tenderness to the right lower quadrant consultants present reports of nausea vomiting no burning on urination nondistended Extremities no edema - Labs CBC & Chem 7: 08/23/18 07:50 08/23/18 07:50 Labs: Abnormal Lab Results - Last 24 Hours (Table) 08/22/18 08/23/18 08/23/18 Range/Units 16:00 07:50 07:50 RBC 3.68 L (3.80-5.40) m/uL Chloride 114 H (98-107) mmol/L BUN 18 H (7-17) mg/dL Creatinine 1.83 H (0.52-1.04) mg/dL Glucose 111 H (74-99) mg/dL AST 64 H (14-36) U/L Total Protein 5.9 L (6.3-8.2) g/dL Albumin 3.0 L (3.5-5.0) g/dL Lipase 434 H (23-300) U/L 08/23/18 Range/Units 07:50 RBC (3.80-5.40) m/uL Chloride (98-107) mmol/L BUN (7-17) mg/dL Creatinine (0.52-1.04) mg/dL Glucose (74-99) mg/dL AST (14-36) U/L Total Protein (6.3-8.2) g/dL Albumin (3.5-5.0) g/dL Lipase 368 H (23-300) U/L Microbiology - Last 24 Hours (Table) 08/22/18 10:20 Urine Culture - Preliminary Urine,Voided Assessment and Plan Assessment: Impression Present on admission bilateral lower abdominal pain suspect due to a UTI KUB no left-sided tenderness no acute findings CAT scan of the abdomen pelvis show mild to moderate right-sided hydronephrosis without obstructing calculus no bowel obstruction dilated gallbladder no CT evidence of gallstones or evidence of acute cholecystitis Stage IV left kidney disease Placement of a right stent removed recently Anxiety depressive disorder Mildly elevated total bilirubin 1.0 Plan IV fluid for hydration Clear liquid diet advance to full liquid Will monitor clinical course closely addressing clinical issues as they arise Pain control Home meds as appropriate DVT and GI prophylaxis Repeat labs in the morning The above impression and plan of care have been discussed and directed by signing physician. Parul Katz nurse practitioner acting as scribe for signing physician.
[2018-08-23] MEDS: clonazePAM 0.5 MG TAB PO SCH (20:08)
[2018-08-23] MEDS: MORPHINE SULFATE 2 MG/ML SYRINGE IVP PRN (23:05)
--- NOTE | 2018-08-24 00:32 | PN ---
PROGRESS NOTE DATE OF SERVICE: 08/23/2018. REASON FOR FOLLOWUP: UTI. INTERVAL HISTORY: The patient is afebrile. She is feeling slightly better, still complaining of pain to the right upper quadrant area and feeling nauseous. Denies any chest pain, shortness of breath or cough and no diarrhea. EXAMINATION: Blood pressure 130/84 with a pulse of 90, temperature of 99.3. She is 98% on room air. General description is a middle-aged female lying in bed in no distress. Respiratory system unlabored breathing. Clear to auscultation anteriorly. Heart: S1, S2. Regular rate and rhythm. ABDOMEN: Soft, no tenderness. LABS: Hemoglobin 11.5, white count 6.9, BUN of 18, creatinine 1.83. DIAGNOSTIC IMPRESSION AND PLAN: Patient admitted to the hospital with wound nausea, vomiting, abdominal pain with positive UA. The patient did have recent urinary tract infection with more of right ureteral stent. Still have hydronephrosis on that side. Currently covered with Rocephin that will continue for now while waiting for the culture to finalize. Continue supportive care. MMODL / IJN: [id number] /
[2018-08-24] MEDS: SODIUM CHLORIDE 0.9% 1,000 ML IV SCH (04:56)
[2018-08-24] MEDS ORDERED: ONDANSETRON 4 MG/2 ML VIAL IVP ONE (05:57)
[2018-08-24] MEDS: MORPHINE SULFATE 2 MG/ML SYRINGE IVP PRN ×3 (06:19→19:21)
[2018-08-24 06:50] LABS: Basophils % (A) 0 %; Eosinophils # (A) 0.4 k/uL (0-0.7); Eosinophils % (A) 5 %; HCT 33.4 % (34.0-46.0); HGB 10.9 gm/dL (11.4-16.0); Lymphocytes # (A) 1.7 k/uL (1.0-4.8); Lymphocytes % (A) 18 %; MCH 31.8 pg (25.0-35.0); MCHC 32.7 g/dL (31.0-37.0); MCV 97.1 fL (80.0-100.0); Mean Platelet Volume 6.9; Monocytes # (A) 0.5 k/uL (0-1.0); Monocytes % (A) 5 %; Neutrophils # (A) 6.4 k/uL (1.3-7.7); Neutrophils % (A) 70 %; Platelet Count 240 k/uL (150-450); RBC 3.44 m/uL (3.80-5.40); RDW 13.4 % (11.5-15.5); WBC 9.1 k/uL (3.8-10.6)
[2018-08-24 06:57] LABS: Albumin 2.9 g/dL (3.5-5.0); Potassium 4.9 mmol/L (3.5-5.1); Total Bilirubin 0.9 mg/dL (0.2-1.3); Total Protein 5.8 g/dL (6.3-8.2)
--- NOTE | 2018-08-24 08:01 | PN ---
PROGRESS NOTE SUBJECTIVE: This is a white female who was admitted with acute pancreatitis, possible cholecystitis and worsening creatinine. Renal function. Her creatinine is down to 1.83, from 1.99. Lipase is down to 368, amylase down to 80. Estimated GFR 36, shows large leukocyte esterase, 1 white cell. She is on IV Rocephin for UTI. Continue current treatments. Cardiovascular S1-S2. GI soft. Hematology negative Homans. Psych fair mood and affect. ASSESSMENT: 1. Acute pancreatitis. 2. Urinary tract infection. 3. Stage III renal disease. Please see further orders. MMODL / IJN: [id number] /
[2018-08-24] MEDS: PANTOPRAZOLE 40 MG TABLET PO SCH (08:26)
[2018-08-24] MEDS: CEFEPIME 1 GM in SODIUM CHLORIDE 0.9% 50 ML IVPB SCH (08:26)
[2018-08-24] MEDS ORDERED: IV FLUID CONTINUATION 1,000 ML IV ONE (10:01)
[2018-08-24] MEDS ORDERED: BUPIVACAIN-EPI 0.25%-1:200,000 30 ML VIAL SQ ONE (10:17)
[2018-08-24] MEDS ORDERED: ROCURONIUM BROMIDE 10 MG/ML 10 ML VIAL IV ONE (10:55)
[2018-08-24] MEDS ORDERED: fentaNYL (PF) 50 MCG/ML 2 ML AMP ONE (10:55)
[2018-08-24] MEDS ORDERED: HEPARIN SODIUM,PORCINE 5,000 UNIT/ML 1 ML VIAL ONE (10:55)
[2018-08-24] MEDS ORDERED: ePHEDrine SULFATE/0.9% NACL/PF 50 MG/5 ML SYRINGE IV ONE (10:55)
[2018-08-24] MEDS ORDERED: PROPOFOL 10 MG/ML 20 ML VIAL IV ONE (10:55)
[2018-08-24] MEDS ORDERED: LIDOCAINE 1% INJ 10MG/ML (20 ML MDV) ONE (10:55)
[2018-08-24] MEDS ORDERED: MIDAZOLAM 2 MG/2 ML VIAL ONE (10:55)
[2018-08-24] MEDS ORDERED: NEOSTIGMINE 1 MG/ML 10 ML VIAL ONE (10:55)
[2018-08-24] MEDS ORDERED: GLYCOPYRROLATE 0.2 MG/ML 2 ML VIAL ONE (10:55)
[2018-08-24] MEDS ORDERED: ceFAZolin 1,000 MG VIAL ONE (10:55)
[2018-08-24] MEDS ORDERED: SUCCINYLCHOLINE CHLORIDE 100 MG/5 ML SYR IV ONE (10:55)
[2018-08-24] MEDS ORDERED: NALOXONE 0.4 MG/ML 1 ML VIAL IV PRN (12:05)
[2018-08-24] MEDS ORDERED: LACTATED RINGERS 1,000 ML IV ONE ×2 (12:05)
[2018-08-24] MEDS ORDERED: HYDROmorphone 1 MG/ML 1 ML SYRINGE IVP PRN (12:05)
[2018-08-24] MEDS ORDERED: HYDROcodone/APAP 5-325MG 1 EACH TAB PO PRN (12:05)
[2018-08-24] MEDS ORDERED: ONDANSETRON 4 MG/2 ML VIAL IVP PRN (12:05)
--- NOTE | 2018-08-24 12:05 | P.OP ---
Date of Procedure: 08/24/18 Preoperative Diagnosis: Cholecystitis Postoperative Diagnosis: Cholecystitis Procedure(s) Performed: Laparoscopic cholecystectomy Anesthesia: ALVERTO Surgeon: Bennie Evangelista Estimated Blood Loss (ml): 10 Pathology: other (Gallbladder) Condition: stable Disposition: PACU Description of Procedure: The patient was placed on the operating table. The patient received a general endotracheal tube anesthesia. The patients abdomen was prepped and draped in the usual sterile fashion. Through an infraumbilical stab incision, the fascia of the anterior abdominal wall was grasped with a pair of Kochers and then the Veress needle was placed in the peritoneal cavity. Position of the Veress needle was confirmed with positive drop test. The abdomen was then insufflated. After adequate insufflation, the 10 mm trocar was placed in the peritoneal cavity. Following this the laparoscope was placed in the peritoneal cavity. The patient was placed in the head-up, right side up position and then a 5 mm trocar was placed in the right lateral and right subcostal position under direct visualization. A 8 mm trocar was placed in the epigastric position. The gallbladder was grasped in the fundus and infundibulum. Traction on the gallbladder was placed in the lateral and the cephalad positions. The triangle of Calot was visualized.. The gallbladder was quite inflamed. The cystic duct was bluntly dissected until the union of the cystic duct and common bile duct was seen. The cystic duct was then divided and sealed with the Harmonic scissors. A PDS Endoloop was then placed throughout the cystic duct stump. The cystic artery divided and sealed with the Harmonic scissors. The gallbladder was then removed from the liver bed using Harmonic scissors. The gallbladder was then extracted through the epigastric port site. Operative field was checked for any bleeding spots and Harmonic scissors was used to coagulate the liver bed. The abdomen was irrigated. The trocars were removed. The skin was closed using interrupted 3- 0 Vicryl suture. Dermabond dressing were applied. The patient tolerated the procedure well.
[2018-08-24] MEDS: HYDROmorphone 1 MG/ML 1 ML SYRINGE IVP PRN ×2 (12:34→12:44)
[2018-08-24 16:17] VITALS: RESP 16
--- NOTE | 2018-08-24 17:40 | PN ---
PROGRESS NOTE DATE OF SERVICE: 08/24/2018. REASON FOR FOLLOWUP: Urinary tract infection. INTERVAL HISTORY: The patient is afebrile. She is breathing comfortably. The patient denies having any chest pain. Some abdominal pain. No nausea, vomiting, abdominal pain is currently controlled and no diarrhea. EXAMINATION: Blood pressure is 132/85 with a pulse of 76, temperature 98. She is 97% on room air. General description is a middle-aged female lying in bed in no distress. Respiratory system: Unlabored breathing. Clear to auscultation anteriorly. Heart S1, S2. Regular rate and rhythm. Abdomen soft. No tenderness. LABS: Hemoglobin is 10.8, white count 9.1 with a BUN of 16, creatinine 1.82. DIAGNOSTIC IMPRESSION AND PLAN: Patient admitted to the hospital with nausea, vomiting, concern for complicated UTI. Has a positive UA. She has been treated with broad spectrum antibiotic in the form of cefepime while waiting for the culture to finalize. Continue supportive care. MMODL / IJN: [id number] /
--- NOTE | 2018-08-24 19:55 | PN ---
PROGRESS NOTE SUBJECTIVE: This is a 52-year-old white female, gallbladder distention and UTI and pancreatitis. Her pancreatic enzymes are decreased today. She is going to go for laparoscopic cholecystectomy. CARDIOVASCULAR: S1, S2. LUNGS: Clear. GI: Tense to palpation epigastric. ASSESSMENT: 1. Acute right upper quadrant pain secondary to pancreatic induced pancreatitis. 2. Dehydration. 3. Urinary tract infection. Continue broad-spectrum antibiotics. MMODL / IJN: [id number] /
[2018-08-24] MEDS: LACTATED RINGERS 1,000 ML IV SCH (20:04)
[2018-08-24] MEDS: PARoxetine 20 MG TAB PO SCH (20:06)
[2018-08-24] MEDS: clonazePAM 0.5 MG TAB PO SCH (20:27)
[2018-08-25] MEDS: MORPHINE SULFATE 2 MG/ML SYRINGE IVP PRN (00:23)
[2018-08-25] MEDS: SODIUM CHLORIDE 0.9% 1,000 ML IV SCH ×2 (06:32→08:13)
[2018-08-25] MEDS: LACTATED RINGERS 1,000 ML IV SCH (06:32)
[2018-08-25] MEDS: PANTOPRAZOLE 40 MG TABLET PO SCH (08:01)
[2018-08-25] MEDS: CEFEPIME 1 GM in SODIUM CHLORIDE 0.9% 50 ML IVPB SCH (08:05)
[2018-08-25] MEDS: PARoxetine 20 MG TAB PO SCH (08:11)
[2018-08-25] MEDS ORDERED: ENOXAPARIN 40 MG/0.4 ML SYRINGE SQ SCH (09:00)
[2018-08-25 09:19] VITALS: BP 147/87; PULSE 93; TEMP 98
[2018-08-25 11:53] LABS: Basophils % (A) 0 %; Eosinophils # (A) 0.4 k/uL (0-0.7); Eosinophils % (A) 6 %; HCT 32.2 % (34.0-46.0); HGB 10.5 gm/dL (11.4-16.0); Lymphocytes # (A) 1.6 k/uL (1.0-4.8); Lymphocytes % (A) 25 %; MCH 31.8 pg (25.0-35.0); MCHC 32.8 g/dL (31.0-37.0); MCV 97.1 fL (80.0-100.0); Monocytes # (A) 0.3 k/uL (0-1.0); Monocytes % (A) 4 %; Neutrophils # (A) 4.1 k/uL (1.3-7.7); Neutrophils % (A) 63 %; Platelet Count 260 k/uL (150-450); RBC 3.31 m/uL (3.80-5.40); RDW 13.1 % (11.5-15.5); WBC 6.5 k/uL (3.8-10.6)
[2018-08-25 12:16] LABS: Albumin 2.8 g/dL (3.5-5.0); Potassium 4.9 mmol/L (3.5-5.1); Total Bilirubin 0.5 mg/dL (0.2-1.3); Total Protein 5.8 g/dL (6.3-8.2)
--- NOTE | 2018-08-25 12:51 | P.PN ---
Subjective Progress Note Date: 08/25/18 CHIEF COMPLAINT: Status post cholecystectomy HISTORY OF PRESENT ILLNESS: The patient is a 52-year-old female status post cholecystectomy. She has history of elevated liver enzymes which are moderately improvement. "I feel great.". She is tolerating diet. PHYSICAL EXAM: Vital Signs Temp 98 F 08/25/18 08:22 Pulse 93 08/25/18 08:22 Resp 16 08/25/18 08:22 BP 147/87 08/25/18 08:22 Pulse Ox 98 08/25/18 08:22 Intake & Output 08/24/18 08/25/18 08/25/18 18:59 06:59 18:59 Intake Total 1250 Output Total 206 Balance 1044 Intake: IV 1250 Output: Urine 201 Estimated Blood Loss 5 Other: Voiding Method Toilet # Voids 1 1 GENERAL: Well-developed in no acute distress. HEENT: No sclera icterus. Extraocular movements grossly intact. Moist buccal mucosa. Head is atraumatic, normocephalic. Hears conversational speech. No nasal drainage. NECK: Supple without lymphadenopathy. CHEST: Non-labored respirations and equal bilateral excursions. CARDIOVASCULAR: Regular rate with regular rhythm. ABDOMEN: Incisions clean dry and intact. Soft. Nondistended. Nontender. MUSCULOSKELETAL: No clubbing, cyanosis or edema. NEUROLOGIC: No focal or lateralizing signs. Cranial nerves II through XII grossly intact. PSYCH: Alert and oriented to person, place and time. SKIN: Well perfused. Good skin turgor. LABS: Reviewed ASSESSMENT: 1. Symptomatic gallstones 2. Elevated liver enzymes PLAN: 1. She is clear from a surgical Stamper for discharge liver enzymes are improving. 2. Recommend repeat labs as outpatient follow-up with Dr Evangelista 3. Prescription sent to her local pharmacy for pain and stool softener per operating surgeon Objective - Vital Signs Vital signs: Vital Signs Temp 98 F 08/25/18 08:22 Pulse 93 08/25/18 08:22 Resp 16 08/25/18 08:22 BP 147/87 08/25/18 08:22 Pulse Ox 98 08/25/18 08:22 Intake & Output 08/24/18 08/25/18 08/25/18 18:59 06:59 18:59 Intake Total 1250 Output Total 206 Balance 1044 Intake: IV 1250 Output: Urine 201 Estimated Blood Loss 5 Other: Voiding Method Toilet # Voids 1 1 - Labs CBC & Chem 7: 08/25/18 11:36 08/25/18 11:36 Labs: Abnormal Lab Results - Last 24 Hours (Table) 08/25/18 08/25/18 Range/Units 11:36 11:36 RBC 3.31 L (3.80-5.40) m/uL Hgb 10.5 L (11.4-16.0) gm/dL Hct 32.2 L (34.0-46.0) % Chloride 110 H (98-107) mmol/L Creatinine 1.72 H (0.52-1.04) mg/dL AST 77 H (14-36) U/L ALT 62 H (9-52) U/L Total Protein 5.8 L (6.3-8.2) g/dL Albumin 2.8 L (3.5-5.0) g/dL Microbiology - Last 24 Hours (Table) 08/22/18 12:24 Blood Culture - Preliminary Blood No Growth after 48 hours
--- NOTE | 2018-08-25 13:07 | PN ---
PROGRESS NOTE SUBJECTIVE: This patient is a 52-year-old white female admitted with gallbladder-induced pancreatitis. Remains on IV antibiotics. Urine culture was negative. She is feeling better today. Her incisions look clean, dry, intact on her abdomen. She is up, going to the bathroom. CARDIOVASCULAR: S1, S2. LUNGS: Clear. GI: Soft. HEMATOLOGY: Negative Homans. ASSESSMENT: Gallbladder-induced pancreatitis. Labs are pending this morning. If the labs look good we will advance her diet and she will possibly be able to go home today. MMODL / IJN: [id number] /
== END 2018-08-25 13:47 | disposition home or self-care (01) | DRG 417 ==
LOC: EC 08:39 → 6PED 12:19
PROVIDERS: ADMIT Family Medicine; ATTEND Family Medicine
PROC: 0FT44ZZ Resection of Gallbladder, Percutaneous Endoscopic Approach (ICD-10-PCS; principal; 2018-08-24 12:30)
DX: K80.00 Calculus of gallbladder with acute cholecystitis without obstruction (principal); K85.90 Acute pancreatitis without necrosis or infection, unspecified; N13.6 Pyonephrosis; N18.4 Chronic kidney disease, stage 4 (severe); E86.0 Dehydration; F32.9 Major depressive disorder, single episode, unspecified; F41.9 Anxiety disorder, unspecified; Z80.1 Family history of malignant neoplasm of trachea, bronchus and lung; Z82.0 Family history of epilepsy and other diseases of the nervous system; Z87.442 Personal history of urinary calculi; Z79.899 Other long term (current) drug therapy; R94.5 Abnormal results of liver function studies; Z88.2 Allergy status to sulfonamides
CPT/HCPCS: 36415; 71046; 74018; 74176; 76705; 80053; 81001; 81025; 82150; 83690; 85025; 87040; 87086; 88304; 93005; 96361; 96365; 96375; 99285

== ENCOUNTER → 2019-05-20 | Outpatient (CLI) | payer OTHER ==
--- NOTE | 2019-05-21 09:05 | BD ---
EXAMINATION TYPE: Axial Bone Density DATE OF EXAM: 05/20/2019 COMPARISON: NONE CLINICAL HISTORY: hyperparathyroidism Height: 5'1 1/2 Weight: 119 FRAX RISK QUESTIONS: Secondary Osteoporosis: RISK FACTORS HISTORY OF: Family History of Osteoporosis: y Postmenopausal woman: y Hyperparathyroidism: y MEDICATIONS: Additional Medications: uric acid, stage 3 kidney disease, hyper calcium, vitamin D Additional History: EXAM MEASUREMENTS: Bone mineral densitometry was performed using the [employer] System. Bone mineral density as measured about the Lumbar spine is: ----- L1-L4(G/cm2): 0.936 T Score Values are as follows: ----- L2: -1.7 ----- L3: -2.3 ----- L4: -2.6 ----- L1-L4: -2.0 Bone mineral density about the R hip (g/cm2): 0.667 Bone mineral density about the L hip (g/cm2): 0.775 T Score values are as follows: -----R Neck: -2.7 -----L Neck: -1.9 -----R Total: -2.5 -----L Total: -1.7 IMPRESSION: Osteoporosis (T Score less than -2.5). There is increased fracture risk and therapy is usually indicated based on age. Re-Screen 1-2 years. NOTE: T-SCORE=SD OF THE YOUNG ADULT MEAN.
== END | disposition home or self-care (01) ==
LOC: RADBDWWP 16:25
PROVIDERS: ATTEND Internal Medicine
DX: M81.0 Age-related osteoporosis without current pathological fracture (principal); E21.3 Hyperparathyroidism, unspecified
CPT/HCPCS: 77080

== ENCOUNTER → 2020-03-24 | Outpatient (CLI) | payer OTHER ==
--- NOTE | 2020-03-24 17:04 | CT ---
EXAMINATION TYPE: CT abdomen wo con DATE OF EXAM: 03/24/2020 COMPARISON: 08/22/18 INDICATION: Calculus of kidney, left side. DLP: 188.1 mGycm, Automated exposure control for dose reduction was used. CONTRAST: 0 mL of Isovue 300. Study performed without Oral Contrast TECHNIQUE: Axial images were obtained from above the diaphragm to the pubic rami in the axial plane a t 5 mm thick sections. Reconstructed images are reviewed on the computer in the coronal plane. FINDINGS: Limited CT sections are obtained the lung bases. The lung bases are clear. Moderate size hiatal her elva is present. CT ABDOMEN: Liver: Normal Spleen: Normal Pancreas: Normal Adrenal glands: The adrenal glands are normal. Gallbladder: Surgically absent. Kidneys: No masses are evident. No hydronephrosis is present. No cysts are present. Multiple bilat eral renal stones are present. The larger on the right side include a 0.5 cm calcification at the inf erior pole a mid pole posterior calcification measuring 0.5 cm and anterior upper pole calcification measuring 0.3 cm. Additional punctate calcifications are on the right. On the atrophic appearing left kidney the larger calcifications including a lower pole 0.6 cm calcification. No hydronephrosis or h ydroureter is evident. Aorta: Normal Inferior vena cava: Normal. IMPRESSIONS: 1. Bilateral nonobstructing renal stones. 2. Atrophic left kidney.
== END | disposition home or self-care (01) ==
LOC: RADCTMAIN 16:02
PROVIDERS: ATTEND Urology
DX: N20.0 Calculus of kidney (principal); N26.1 Atrophy of kidney (terminal); Z88.2 Allergy status to sulfonamides
CPT/HCPCS: 74150